=== PATIENT | female | born 1995 | race African-American/Black ===

== ENCOUNTER 2018-08-09 17:13 | Emergency (ER) | payer OTHER ==
[~2018-08-09] VITALS: Ht 152.4 cm; Wt 65.8 kg
[~2018-08-09 17:13] MED LIST: ALKA-SELTZER P1 EA11; IBUPROFEN 600600 M1 PO; ZPAK PO
[2018-08-09] MEDS ORDERED: PREDNISONE 20 M20 M1 PO (19:09)
[2018-08-09] MEDS ORDERED: TESSALON PERLE100 MG PO (19:09)
[2018-08-09 19:15] VITALS: BP 107/62
== END 2018-08-09 19:16 | disposition home or self-care (01) ==
LOC: ER 17:13
DX: J45.901 Unspecified asthma with (acute) exacerbation (principal)